=== PATIENT | female | born 1990 | race Caucasian/White ===

== ENCOUNTER 2024-01-14 13:26 | Outpatient (CLI) | payer BC ==
[~2024-01-14] VITALS: Ht 165.1 cm; Wt 79.5 kg
[2024-01-14 13:40] VITALS: BP 153/101; PULSE 113; TEMP 98.4
[2024-01-14] MEDS ORDERED: PRENATAL ESSEN1 EACH PO (13:45)
[2024-01-14] MEDS ORDERED: TYLENOL 500MG500 MG PO (13:46)
[2024-01-14 14:20] LABS: COLLECTION METHOD CLEAN CATCH
[2024-01-14 14:25] LABS: HEMATOCRIT 38.9 % (37.0-47.0); HEMOGLOBIN 13.2 g/dl (12.5-16.0); MEAN CELL VOLUME 87 fl (80.0-100.0); MEAN CORPUSCULAR HEMOGLOBIN 30 pg (27-31); MEAN CORPUSCULAR HGB CONC 34 g/dl (33.0-37.0); MEAN PLATELET VOLUME 10.4 fl (7.4-10.4); PLATELET COUNT 243 K/mm3 (130-400); RED BLOOD COUNT 4.48 M/mm3 (4.10-5.30); REDCELL DISTRIBUTION WIDTH-CV 12.3 % (11.5-14.5)
[2024-01-14 14:26] LABS: PH 5.5 (5.0-8.5); URINE APPEARANCE CLEAR (CLEAR/HAZY); URINE BLOOD NEGATIVE (NEGATIVE); URINE COLOR YELLOW (YELLOW); URINE GLUCOSE NEGATIVE (NEGATIVE); URINE KETONE TRACE (NEGATIVE); URINE NITRATE NEGATIVE (NEGATIVE); URINE PROTEIN(semi-quant) NEGATIVE (NEGATIVE); URINE UROBILINOGEN 0.2 E.U/dL (0.2-1.0)
[2024-01-14] MEDS ORDERED: Acetaminophen 500 MG TAB PO PRN (14:30)
[2024-01-14 14:31] VITALS: BP 125/83; PULSE 84
--- NOTE | 2024-01-14 14:34 | NUR ---
1340 PATIENT HERE FOR COMPLAINTS OF HEADACHE FOR 3 DAYS. TYLENOL DOES NOT HELP. HIGH BLOOD PRESSURE AT WORK AND WENT TO OFFICE YESTERDAY. ASSESEMENT COMPLETED. BP HERE 153/101 SVE BY Vannesa DONALDSON /. DR FOSTER SUSHMA AND UPDATED ON ALL ABOVE INFORMATION. ORDERS FOR LABS.
[2024-01-14 14:46] LABS: ALBUMIN 2.9 g/dL (3.5-5.0); BILIRUBIN,TOTAL 0.5 mg/dL (0.2-1.2); CALCIUM 9.5 mg/dL (8.4-10.2); CREATININE, serum 0.74 mg/dL (0.57-1.11); POTASSIUM 3.7 mEq/L (3.5-4.5); TOTAL PROTEIN 6.7 g/dl (6.2-8.1)
[2024-01-14 15:00] VITALS: BP 124/86; PULSE 82
--- NOTE | 2024-01-14 15:12 | NUR ---
1500 ALL LABS RESULTED AND DR FOSTER DISCUSSED WITH PATIENT. PATIENT INSTRUCTED TO BE ON BEDREST THROUGH AND TO FOLLOW UP WITH DR FOSTER ON WEDNESDAY VERBAL UNDERSTANDING NOTED. FHT 120 BABY ACTIVE. PATIENT AND DISMISSED TO HOME.
== END 2024-01-14 15:10 | disposition home or self-care (01) ==
LOC: LDRO 13:26
PROVIDERS: Obstetrics & Gynecology
DX: O16.3 Unspecified maternal hypertension, third trimester (principal); Z3A.37 37 weeks gestation of pregnancy

== ENCOUNTER 2024-01-17 10:32 | Outpatient (CLI) | payer BC ==
[~2024-01-17] VITALS: Ht 162.6 cm; Wt 80.0 kg
--- NOTE | 2024-01-17 10:30 | NUR ---
PT AMBULATORY TO UNIT WITH SPOUSE, ORIENTED TO ROOM AND CHANGED INTO HOSPITAL GOWN. PT CONNECTED TO EFM AND TOCO AND ORIENTED TO PLAN OF CARE. PT REPORTS HAVING "ABNORMAL HEADACHE THAT DOES NOT GO AWAY WITH TYLENOL," DENIES CONTRACTION PAIN BUT REPORTS OCCATIONALLY FEELING "UPPER AND LOWER TIGHTNESS THAT RADIATES TO MY LEGS" BUT CANT REGULARLY TIME THEM. PT DENIES VAGINAL BLEEDING/SPOTTING, PT DENIES LEAKING OF FLUID, REPORTS POSTIVE MOVEMENT. PT VS ELEVATED BP, HR AND RR STABLE, PT AWAKE AND ORIENTED X3, FHR BASELINE 145, PROLONGED ACCELS, NO DECELS, MODERATE VARIABLITY, NO CTX.
[~2024-01-17 10:32] MED LIST: PRENATAL ESSEN1 EACH PO; TYLENOL 500MG500 MG PO
[2024-01-17] MEDS ORDERED: PRILOSEC10 MG PO (11:03)
[2024-01-17] MEDS ORDERED: UNISOM25 MG PO (11:03)
[2024-01-17] MEDS ORDERED: ZYRTEC ALLERGY10 MG PO (11:03)
[2024-01-17 11:15] VITALS: BP 138/92; PULSE 99
[2024-01-17 11:45] VITALS: BP 127/77; PULSE 88
[2024-01-17 12:15] VITALS: BP 134/90; PULSE 84
[2024-01-17 12:17] LABS: COLLECTION METHOD CLEAN CATCH
[2024-01-17 12:22] LABS: PH 5.5 (5.0-8.5); URINE APPEARANCE CLEAR (CLEAR/HAZY); URINE BLOOD NEGATIVE (NEGATIVE); URINE COLOR YELLOW (YELLOW); URINE GLUCOSE NEGATIVE (NEGATIVE); URINE KETONE NEGATIVE (NEGATIVE); URINE NITRATE NEGATIVE (NEGATIVE); URINE PROTEIN(semi-quant) NEGATIVE (NEGATIVE); URINE UROBILINOGEN 0.2 E.U/dL (0.2-1.0)
[2024-01-17 12:37] LABS: HEMOGLOBIN 12.3 g/dl (12.5-16.0); MEAN CELL VOLUME 88 fl (80.0-100.0); MEAN CORPUSCULAR HEMOGLOBIN 30 pg (27-31); MEAN CORPUSCULAR HGB CONC 34 g/dl (33.0-37.0); MEAN PLATELET VOLUME 10.6 fl (7.4-10.4); PLATELET COUNT 250 K/mm3 (130-400); RED BLOOD COUNT 4.15 M/mm3 (4.10-5.30); REDCELL DISTRIBUTION WIDTH-CV 12.5 % (11.5-14.5)
[2024-01-17 12:40] LABS: HEMATOCRIT 36.4 % (37.0-47.0)
[2024-01-17 12:45] VITALS: BP 132/85; PULSE 95
[2024-01-17 12:48] LABS: ALBUMIN 2.5 g/dL (3.5-5.0); BILIRUBIN,TOTAL 0.2 mg/dL (0.2-1.2); CALCIUM 8.8 mg/dL (8.4-10.2); CREATININE, serum 0.72 mg/dL (0.57-1.11); POTASSIUM 3.8 mEq/L (3.5-4.5); TOTAL PROTEIN 6.2 g/dl (6.2-8.1)
[2024-01-17 13:02] LABS: BAND 2 % (0-10); EOSINOPHIL 3 % (0-4); LYMPHOCYTE 20 % (20.0-51.0); NEUTROPHILS 63 % (42.0-75.2); PLATELET ESTIMATE NORMAL (NORMAL)
[2024-01-17 13:15] VITALS: BP 116/77; PULSE 81
[2024-01-17 13:45] VITALS: BP 120/78; PULSE 77
--- NOTE | 2024-01-17 13:59 | NUR ---
1345 orders from [facility] to discharge pt home at this time, orders for pt to return to [facility] tomorrow at 0915 AM for blood pressure check. [facility] visualized strip and lab results. FRANKLYN AUSTIN.
--- NOTE | 2024-01-17 14:47 | NUR ---
1415 RN GIVES PT BOTH VERBAL AND WRITTEN DISCHARGE INSTRUCTIONS. PT INSTRUCTED TO CALL/COME BACK IF PT NOTICES ANY LOF, VB, DFM, STRONG/REGULAR CTX, SOUZA UNRELIEVED BY TYLENOL, VISUAL CHANGES, OR ANY OTHER CHANGES/CONCERNS. PT VERBALIZES UNDERSTANDING AND HAS NO QUESTIONS AT THIS TIME. PT INSTRUCTED TO REPORT TO [facility] TOMORROW AT 0915 FOR A BLOOD PRESSURE CHECK.
== END 2024-01-17 14:20 | disposition home or self-care (01) ==
LOC: LDRO 10:32
PROVIDERS: Obstetrics & Gynecology
DX: O16.3 Unspecified maternal hypertension, third trimester (principal); Z3A.37 37 weeks gestation of pregnancy

== ENCOUNTER 2024-01-18 08:20 | Inpatient (IN) | payer BC ==
[2024-01-18] VITALS (37 sets, daily range): BP systolic 106–148; BP diastolic 58–91; PULSE 72–113; TEMP 98–101.6
[~2024-01-18] VITALS: Ht 165.1 cm; Wt 80.0 kg
[~2024-01-18 08:20] MED LIST changes: +PRILOSEC10 MG PO; +UNISOM25 MG PO; +ZYRTEC ALLERGY10 MG PO
[2024-01-18] MEDS ORDERED: Penicillin G Potassium 2,500,000 UNITS in NS 100 ML IV SCH (12:15)
[2024-01-18] MEDS ORDERED: LR 1,000 ML IV SCH (12:15)
[2024-01-18] MEDS ORDERED: LR & Oxytocin 500 ML IV SCH (12:15)
[2024-01-18] MEDS ORDERED: Penicillin G Potassium 5,000,000 UNITS in NS 100 ML IV ONE (12:15)
[2024-01-18 12:51] LABS: HEMOGLOBIN 12.6 g/dl (12.5-16.0); MEAN CELL VOLUME 87 fl (80.0-100.0); MEAN CORPUSCULAR HEMOGLOBIN 30 pg (27-31); MEAN CORPUSCULAR HGB CONC 35 g/dl (33.0-37.0); MEAN PLATELET VOLUME 10.2 fl (7.4-10.4); PLATELET COUNT 265 K/mm3 (130-400); RED BLOOD COUNT 4.22 M/mm3 (4.10-5.30); REDCELL DISTRIBUTION WIDTH-CV 12.5 % (11.5-14.5)
[2024-01-18 12:54] LABS: HEMATOCRIT 36.5 % (37.0-47.0)
[2024-01-18 13:13] LABS: ALBUMIN 2.7 g/dL (3.5-5.0); BILIRUBIN,TOTAL 0.3 mg/dL (0.2-1.2); CREATININE, serum 0.73 mg/dL (0.57-1.11); POTASSIUM 3.8 mEq/L (3.5-4.5); TOTAL PROTEIN 6.5 g/dl (6.2-8.1)
[2024-01-18 13:24] LABS: BAND 4 % (0-10); BASOPHIL 1 % (0-2); LYMPHOCYTE 22 % (20.0-51.0); METAMYELOCYTE 1 % (0-0); NEUTROPHILS 65 % (42.0-75.2); PLATELET ESTIMATE NORMAL (NORMAL)
--- NOTE | 2024-01-18 14:04 | NUR ---
1210 [facility] AND RN BEDSIDE DISCUSSING POC WITH PT, PT VERBALIZES UNDERSTANDING AND HAS NO QUESTIONS AT THIS TIME
--- NOTE | 2024-01-18 15:55 | NUR ---
1545 UPDATED ON RECENT SVE, FHTS, CTX PATTERN. RECOMMENDS PT GET EPIDURAL IF SHE DESIRES IT.
[2024-01-18] MEDS ORDERED: ROPivacaine PF 0.2% 200 ML IV ONE (15:58)
[2024-01-18] MEDS ORDERED: Ondansetron 4 MG/2 ML VIAL IV PRN (16:30)
[2024-01-18] MEDS ORDERED: Naloxone 0.4 MG/ML VIAL IV PRN ×2 (16:30→21:30)
[2024-01-18] MEDS ORDERED: diphenhydrAMINE 25 MG CAP PO PRN (16:30)
[2024-01-18] MEDS ORDERED: diphenhydrAMINE 50 MG/ML 1 ML VIAL IV PRN (16:30)
[2024-01-18] MEDS ORDERED: ePHEDrine 50 MG/10 ML VIAL IV PRN (16:30)
--- NOTE | 2024-01-18 16:30 | NUR ---
IV[facility] GOING FOR EPIDURAL PLACEMENT, PT SITTING ON SIDE OF BED FOR EPIDURAL, ROLL UP HELPER AND RN BEDSIDE
--- NOTE | 2024-01-18 17:54 | NUR ---
1705 [facility] BEDSIDE PERFORMING SVE ON PT, RUPTURES FOREBAG AND PLACES IUPC
--- NOTE | 2024-01-18 19:52 | NUR ---
DR. FOSTER AT BEDSIDE. SVE 0. POC EXPLAINED TO PATIENT AND SPOUSE.
[2024-01-18] MEDS ORDERED: traZODone 50 MG TAB PO PRN (21:00)
[2024-01-18] MEDS ORDERED: Measles/Mumps/Rubella Virus Vaccine Live w Diluent 0.5 ML VIAL SQ SCH (21:15)
[2024-01-18] MEDS ORDERED: Loratadine 10 MG TAB PO PRN (21:15)
[2024-01-18] MEDS ORDERED: Mag/Al Hydrox/Simeth Susp 30 ML CUP PO PRN (21:15)
[2024-01-18] MEDS ORDERED: Magnes Hydrox (MOM) 80 MG/ML 30 ML CUP PO PRN (21:15)
[2024-01-18] MEDS ORDERED: Acetaminophen 500 MG TAB PO PRN (21:30)
[2024-01-18] MEDS ORDERED: Ibuprofen 800 MG TAB PO SCH (21:30)
[2024-01-18] MEDS ORDERED: Witch Hazel 50% Pads Bulk TUB TP PRN (21:30)
[2024-01-18] MEDS ORDERED: oxyCODONE 5 MG TAB PO PRN (21:30)
[2024-01-18] MEDS ORDERED: Phenylephrine/Mineral Oil/Petrolatum 57 GM TUBE RC PRN (21:30)
[2024-01-18] MEDS ORDERED: Gentamicin/Sodium Chloride 50 ML IV SCH (23:00)
[2024-01-18] MEDS ORDERED: Tranexamic Acid 1,000 MG in NS 100 ML IV ONE (23:15)
--- NOTE | 2024-01-18 23:45 | NUR ---
2116- DR. FOSTER AT BEDSIDE. SVE COMPLETE/0. PUSHING EXPLAINED TO PATIENT. REYNOLDS CATHETER REMOVED. 2123- PATIENT BEGINS COACHED PUSHING WITH CONTRACTIONS. 2243- DR. FOSTER AT BEDSIDE TO ASSESS PUSHING EFFORTS. AXILLARY TEMPERATURE 101.6. CHORIO CALLED. 2316- DR. FOSTER PREFORMS STRAIGHT CATH. EDUCATED PATIENT ON USE OF A VACUUM TO ASSIST WITH DELIVERY. PATIENT VERBALIZES UNDERSTANDING. 2318- VACUUM IN PLACE. PRESSURE APPLIED DURING CONTRACTION. GOOD MATERNAL PUSHING EFFORTS. TRACTION APPLIED BY DR. FOSTER. PRESSURE RELEASED AT COMPLETION OF CONTRACTION. 232- VACUUM PRESSURE APPLIED DURING CONTRACTION. POP OFF NOTED DURING MATERNAL PUSHING EFFORTS. 232- VACUUM PLACED NO PRESSURE NOTED. 232- VACUUM PRESSURE APPLIED DURING CONTRACTION. GOOD MATERNAL PUSHING EFFORTS NOTED. PRESSURE RELEASED AT COMPLETION OF CONTRACTION. 233- PATIENT EDUCATED ON EPISIOTOMY. PATIENT VERBALIZED UNDERSTANDING. DR. FOSTER CUTS EPISIOTOMY. 233- SPONTANEOUS VAGINAL DELIVERY OF VIABLE BABY BOY. CORD CLAMPED BY DR. FOSTER AND CUT BY FOB. BABY TO MOTHERS ABDOMEN. DRIED AND STIMULATED. BABY CARES ASSUMED BY Ankita NEWELL RN. 2338- SPONTANEOUS DELIVERY OF INTACT PLACENTA. PITOCIN STARTED AT 333ML/HR PER PROTOCOL. DR. FOSTER BEGINS REPAIR OF 2ND DEGREE LACERATION AND RIGHT MEDIOLATERAL EPISIOTOMY. 2345- RECOVERY STARTED.
[2024-01-19] VITALS (9 sets, daily range): BP systolic 117–149; BP diastolic 76–92; PULSE 76–101; TEMP 97.7–99
--- NOTE | 2024-01-19 03:00 | NUR ---
0300- PATIENT ABLE TO LIFT BILATERAL LOWER EXTREMITIES. PATIENT SITTING ON EDGE OF BED. EPIDURAL CATHETER REMOVED WITH TIP INTACT. PATIENT TOLERATED WELL. 0305- PATIENT TRANSFERRED TO RESTROOM FOLLOWING DELIVERY VIA [facility]. PATIENT UNABLE TO VOID AT THIS TIME. PERICARE PROVIDED. PATIENT'S HOSPITAL GOWN CHANGED, UNDERWEAR AND PAD ON. 0315- PATIENT TRANSFERRED TO ROOM VIA [facility]. PATIENT AND SPOUSE ORIENTED TO ROOM. PLAN OF CARE EXPLAINED. QUESTIONS INVITED AND ANSWERED.
[2024-01-19] MEDS ORDERED: Sennosides/Docusate 8.6-50 MG TAB PO SCH (08:00)
[2024-01-20] MEDS ORDERED: MOTRIN 800800 MG/TAB PO (06:33)
[2024-01-20] MEDS ORDERED: PERCOCET 325 MG1 TA2 PO (06:34)
[2024-01-20 07:30] VITALS: BP 115/75; PULSE 76; TEMP 97.9
[2024-01-20 12:00] VITALS: BP 119/72; PULSE 69; TEMP 98.2
--- NOTE | 2024-01-20 12:33 | NUR ---
Data: Stock Checkerer visit attempted during Stock Checkerer rounds. Sign on door stated family was resting. No Stock Checkerer visit offered. Assessment: None. Plan of Care: Chaplains will remain available as needed/requested while Patient is admitted to this hospital.
--- NOTE | 2024-01-20 13:54 | NUR ---
Initial visit; Patient thanked Hi Teacher for coming by to meet her and her son and her mother (grandmother). Hi Teacher mentioned how pleased we are to have Jenn and her family here with us and we wish them God's blessings along with our congratulations for the of her son.
[2024-01-20 16:00] VITALS: BP 108/70; PULSE 70; TEMP 97.8
[2024-01-20 21:55] VITALS: BP 128/69; PULSE 68; TEMP 98
== END 2024-01-20 23:59 | disposition home or self-care (01) | DRG 805 ==
LOC: OB 08:20 → LDR 11:50 → OB 01-19 03:00
PROVIDERS: ADMIT Obstetrics & Gynecology
PROC: 10D07Z6 Extraction of Products of Conception, Vacuum, Via Natural or Artificial Opening (ICD-10-PCS; principal; 2024-01-19)
PROC: 0KQM0ZZ Repair Perineum Muscle, Open Approach (ICD-10-PCS; 2024-01-19)
PROC: 0W8NXZZ Division of Female Perineum, External Approach (ICD-10-PCS; 2024-01-19)
PROC: 3E033VJ Introduction of Other Hormone into Peripheral Vein, Percutaneous Approach (ICD-10-PCS; 2024-01-19)
DX: O14.94 Unspecified pre-eclampsia, complicating childbirth (principal); O41.1230 Chorioamnionitis, third trimester, not applicable or unspecified; Z37.0 Single live birth; Z3A.38 38 weeks gestation of pregnancy; O70.1 Second degree perineal laceration during delivery; O99.824 Streptococcus B carrier state complicating childbirth; O76 Abnormality in fetal heart rate and rhythm complicating labor and delivery
CPT/HCPCS: J1580; J2405; J2540; J2590; J2795; J7120